=== PATIENT | female | born 1940 | race Caucasian/White ===

== ENCOUNTER → 2017-11-18 | Outpatient (CLI) | payer MEDICARE ==
[~2017-11-18] MED LIST: ASCO-188 PO; CALC1TAB32 PO; DOCU-416 PO; MULT-865 PO; PNEU0.5D3 IM; VITA150T2 PO; WHEA1POW10 PO
--- NOTE | 2017-11-18 09:20 | RADIOLOGY IMAGING REPORT ---
FACILITY: [facility] PATIENT NAME: Carmina Jauregui : 1940 MR: [id number] V: [id number] EXAM DATE: ORDERING PHYSICIAN: FANI KENT TECHNOLOGIST: Location: [facility] [place] Patient: Carmina Jauregui : 1940 Visit/Account:[id number] Date of Sevice: 11/18/2017 DEXA Scan Clinical history: Postmenopausal screening. Comparison: None available. LUMBAR SPINE: The bone mineral density (BMD) measured from L1-L4 correlates with a Z-score 2.7 and a T-score of 0.9 which is Normal as defined by the World Health Organization. The corresponding risk of fracture in the lumbar spine is Not increased compared with a young adult reference population. HIP: Bone mineral density (BMD) measured in the Left total hip region correlates with a Z-score 0.4 and a T-score of -1.5 which is osteopenia as defined by the World Health Organization. The corresponding r isk of fracture in the hip is 3 times increased compared with a young adult reference population. T score left femoral neck -1.9 Bone mineral density (BMD) measured in the Femoral Neck region measures 0.769 g/cm2. Impression: 1. Lumbar spine: Normal. 2. Left Hip: Osteopenia. 3. Femoral Neck: Bone Mineral Density is 0.769 g/cm2 The next DEXA scan of this patient should include the following sites: L1-L4 and the left hip. FRAX? WHO Fracture Risk Assessment Tool link: <http://www.shef.ac.uk/FRAX/tool.jsp?[email or web address]> PLEASE NOTE: 1) The World Health Organization defines low BMD as follows: T-score Normal > -1 Osteopenia < -1 and > -2.5 Osteoporosis < -2.5 without fractures Established osteoporosis < -2.5 with fractures 2) In general, you may wish to consider: Diagnosis Treatment Follow-up DEXA Normal BMD Prevention 2-3 years Osteopenia Prevention/therapy 1-2 years Osteoporosis Therapy Yearly 3) Fracture risk estimated from the T-score is more accurate for vertebral fractures (often spontane ous) than for hip fractures. Report Dictated By: Ivelisse Barrera MD at 11/18/2017 9:14 AM Report E-Signed By: Ivelisse Barrera MD at 11/18/2017 9:15 AM WSN:JT
[2017-11-18 09:26] LABS: PLATELET COUNT, AUTOMATED 290 K/uL (150-450)
== END ==
LOC: RAD 01:40
PROVIDERS: ATTEND Family Medicine
DX: M85.88 Other specified disorders of bone density and structure, other site (principal); I10 Essential (primary) hypertension; R73.01 Impaired fasting glucose; E55.9 Vitamin D deficiency, unspecified; E53.8 Deficiency of other specified B group vitamins; Z72.0 Tobacco use
CPT/HCPCS: 36415; 77080; 82040; 82247; 82306; 82310; 82374; 82435; 82565; 82947; 83036; 84075; 84132; 84155; 84295; 84443; 84450; 84460; 84520; 85025

== ENCOUNTER → 2018-04-28 | Outpatient (CLI) | payer MEDICARE ==
[~2018-04-28] MED LIST changes: +ERGO500037 PO; +ESTR42.53 VA; +ESTR42.59 VG
[2018-04-28 09:16] LABS: PLATELET COUNT, AUTOMATED 287 K/uL (150-450)
== END ==
LOC: LAB 08:13
PROVIDERS: ATTEND Family Medicine
DX: I10 Essential (primary) hypertension (principal); R63.5 Abnormal weight gain; R73.01 Impaired fasting glucose; E55.9 Vitamin D deficiency, unspecified
CPT/HCPCS: 36415; 82040; 82247; 82306; 82310; 82374; 82435; 82565; 82947; 83036; 84075; 84132; 84155; 84295; 84450; 84460; 84520; 85025

== ENCOUNTER → 2018-12-22 | Outpatient (CLI) | payer MEDICARE, BC ==
[~2018-12-22] MED LIST changes: +CHOL200074 PO; +LISI-362 PO; +LISI20TA29 PO; +PNEI IJ; +TRIA15OI20 TP
== END ==
LOC: LAB 09:29
PROVIDERS: ATTEND Family Medicine
DX: E55.9 Vitamin D deficiency, unspecified (principal); I10 Essential (primary) hypertension
CPT/HCPCS: 36415; 82306; 82310; 82374; 82435; 82565; 82947; 84132; 84295; 84520